=== PATIENT | male | born 1945 | race Caucasian/White ===

== ENCOUNTER 2020-11-24 15:29 | Outpatient (CLI) | payer MEDICARE ==
--- NOTE | 2020-11-24 15:47 | XRAY Report ---
PROCEDURE: Chest 2 View X-Ray INDICATIONS: SHORTNESS OF BREATH TECHNIQUE: 2 view(s) of the chest. COMPARISON: None. FINDINGS: Surgical changes and devices: Changes of median sternotomy for CABG. Lungs and pleura: Small bilateral pleural effusions, left greater than right, with overlying atelecta sis/consolidation. Increased interstitial and airspace opacities in both lungs with a central/perihil ar predominance. Mediastinum: Mediastinal contours are normal. Heart size is at the upper limits of normal. Bones and chest wall: No suspicious bony abnormalities. Soft tissues appear unremarkable. IMPRESSION: Bilateral pleural effusions, left greater than right, with overlying atelectasis/consoli dation. Along with findings suggestive of pulmonary edema, the overall appearance is suggestive of ca rdiogenic pulmonary edema. Correlate with BNP. Reviewed by: Corey Saenz MD on 11/24/2020 3:45 PM PST Approved by: Corey Saenz MD on 11/24/2020 3:45 PM PST Station ID: [id number]
== END 2020-11-24 15:30 | disposition home or self-care (01) ==
LOC: DI 15:29
DX: R06.02 Shortness of breath (principal); I25.10 Atherosclerotic heart disease of native coronary artery without angina pectoris